=== PATIENT | female | born 1985 | race Caucasian/White ===

== ENCOUNTER 2016-08-21 15:09 | Emergency (ER) | payer SELFPAY ==
[~2016-08-21] VITALS: Ht 162.6 cm; Wt 66.0 kg
[2016-08-21] MEDS ORDERED: IBUPROFEN 600MG TABLET PO ONE (15:45)
[2016-08-21] MEDS ORDERED: CEFAZOLIN 1000MG PREMIX 50 ML IV ONE (17:00)
[2016-08-21] MEDS ORDERED: SODIUM CHLORIDE 0.9% 1,000 ML IV ONE (17:00)
[2016-08-21] MEDS ORDERED: MORPHINE SULFATE 4 MG/ML CPJ (NOT FOR IM USE) IV ONE ×2 (17:00→23:45)
[2016-08-21] MEDS ORDERED: ONDANSETRON HCL 4MG/2ML VIAL IV ONE (17:15)
[2016-08-21 17:30] LABS: HEMATOCRIT. 39.7 % (36.0-48.0); HEMOGLOBIN. 13.2 g/dL (12.0-16.0); MEAN CORPUSCULAR HEMOGLOBIN 28.8 pg (28.0-32.0); MEAN CORPUSCULAR VOLUME 86.6 fL (81.0-99.0); MEAN PLATELET VOLUME 9.3 fl (7.4-10.4); PLATELET 170 x1000/uL (130-400); RED BLOOD CELL COUNT 4.58 mill/uL (4.2-5.4); RED CELL DISTRIBUTION WIDTH 13.8 % (11.6-14.6)
[2016-08-21 17:32] LABS: CHLORIDE 106 mEq/L (98-107)
[2016-08-21 17:34] LABS: INR 1.1
[2016-08-21 17:37] LABS: CARBON DIOXIDE 26 mEq/L (21-32)
[2016-08-21 18:43] LABS: PLATELET ESTIMATE NORMAL
[2016-08-21 19:08] LABS: CLARITY URINE CLEAR (CLEAR); COLOR URINE YELLOW (YELLOW); GLUCOSE URINE NEGATIVE (NEGATIVE); KETONES URINE 1+ (NEGATIVE); LEUKOCYTE ESTERASE URINE NEGATIVE (NEGATIVE); NITRITE URINE NEGATIVE (NEGATIVE); OCCULT BLOOD URINE NEGATIVE (NEGATIVE); PH URINE 5.5 (4.5-8.0); PROTEIN URINE NEGATIVE (NEGATIVE); SPECIFIC GRAVITY URINE 1.018 (1.005-1.030); UROBILINOGEN URINE 0.2 E.U./dL (0.2-1.0)
[2016-08-22 00:06] VITALS: BP 100/54
== END 2016-08-22 00:58 | disposition short-term general hospital (02) ==
LOC: ER 15:30 → CANBEDREQ 20:22 → ER 08-22 00:58
DX: S88.911A Complete traumatic amputation of right lower leg, level unspecified, initial encounter (principal); W54.0XXA Bitten by dog, initial encounter; Y93.89 Activity, other specified; Y92.9 Unspecified place or not applicable; Y99.8 Other external cause status
CPT/HCPCS: 36415; 71010; 73590; 80053; 81003; 85025; 85610; 86850; 86900; 86901; 93005; 96365; 96375; 99285; A4217; J0690; J2270; J2405; J7030; X7700; Z7610